=== PATIENT | male | born 1990 | race African-American/Black ===

== ENCOUNTER 2017-03-25 20:25 | Emergency (ER) | payer OTHER ==
[~2017-03-25] VITALS: Ht 198.1 cm; Wt 100.0 kg
[2017-03-25 21:22] LABS: APPEARANCE,URINE CLEAR (CLEAR); GLUCOSE, URINE (UA) NEGATIVE (NEGATIVE); KETONES,URINE 40 mg/dL (NEGATIVE); LEUKOCYTE ESTERASE ,URINE MODERATE (NEGATIVE); OCCULT BLOOD,URINE TRACE (NEGATIVE); PROTEIN,URINE NEGATIVE (NEGATIVE)
[2017-03-25 21:51] LABS: WBC,URINE 26-50 /HPF (0-5)
[2017-03-25 21:52] LABS: SQUAMOUS EPITHELIAL CELL,UR Few /LPF (None Seen)
[2017-03-25] MEDS: CefTRIAXone SODIUM 1 GM/VIAL IM ONE (22:01)
[2017-03-25] MEDS: LIDOCAINE HCL/PF 1% 2 ML VIAL IM ONE ×2 (22:01→22:06)
[2017-03-25 22:33] VITALS: BP 114/69
[2017-03-28 06:06] LABS: GC DNA N.A. AMPLIFY Negative (Negative)
== END 2017-03-25 22:53 | disposition home or self-care (01) ==
LOC: EMS 20:28
DX: N34.2 Other urethritis (principal); F17.210 Nicotine dependence, cigarettes, uncomplicated; Z88.1 Allergy status to other antibiotic agents
CPT/HCPCS: 81001; 87086; 87491; 87591; 96372; 99284; J0696; J3490